=== PATIENT | male | born 1980 | race Caucasian/White ===

== ENCOUNTER 2017-01-08 08:03 | Emergency (ER) | payer OTHER, MEDICARE ==
[2017-01-08] MEDS ORDERED: HYDROCODONE/ACETAMINOPHEN 5-325 MG TABLET PO ONE (08:11)
--- NOTE | 2017-01-08 09:34 | ER Document Report ---
ED General - General Chief Complaint: Hand Pain Stated Complaint: RIGHT HAND PAIN Time Seen by Provider: 01/08/17 08:11 Mode of Arrival: Ambulatory Information source: Patient Notes: 36-year-old male presents after punching a wall yesterday. Patient notes pain is swollen he is unable to move it secondary to pain. 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 Patient denies any other injuries TRAVEL OUTSIDE OF THE [place] IN LAST 30 DAYS: No - HPI Onset: Yesterday Onset/Duration: Sudden Quality of pain: Achy Severity: Mild Pain Level: 1 Associated symptoms: Body/muscle aches Exacerbated by: Movement Relieved by: Denies Similar symptoms previously: Yes Recently seen / treated by doctor: Yes - Related Data Allergies/Adverse Reactions: No Known Allergies Allergy (Verified 01/08/17 08:06) Past Medical History - Social History Smoking Status: Former Smoker Cigarette use (# per day): No Chew tobacco use (# tins/day): No Smoking Education Provided: No Frequency of alcohol use: Social Drug Abuse: None Family History: Reviewed & Not Pertinent Patient has suicidal ideation: No Patient has homicidal ideation: No Renal/ Medical History: Denies: Hx Peritoneal Dialysis Psychiatric Medical History: Reports: Hx Depression Past Surgical History: Reports: Hx Genitourinary Surgery - vasectomy, Hx Oral Surgery - Immunizations Hx Diphtheria, Pertussis, Tetanus Vaccination: Yes Review of Systems - Review of Systems Notes: PHYSICAL EXAMINATION: GENERAL: Well-appearing, well-nourished and in no acute distress. HEAD: Atraumatic, normocephalic. EYES: Pupils equal round and reactive to light, extraocular movements intact, sclera anicteric, conjunctiva are normal. ENT: Nares patent, oropharynx clear without exudates. Moist mucous membranes. NECK: Normal range of motion, supple without lymphadenopathy LUNGS: Breath sounds clear to auscultation bilaterally and equal. No wheezes rales or rhonchi. HEART: Regular rate and rhythm without murmurs ABDOMEN: Soft, nontender, nondistended abdomen. No guarding, no rebound. No masses appreciated. Musculoskeletal: Right hand swollen middle range of motion significant pain no obvious deformity NEUROLOGICAL: Cranial nerves grossly intact. Normal speech, normal gait. Normal sensory, motor exams PSYCH: Normal mood, normal affect. SKIN: Warm, Dry, normal turgor, no rashes or lesions noted. Physical Exam - Vital signs Vitals: Temp Pulse Resp BP Pulse Ox 98.3 F 111 H 16 141/89 H 98 01/08/17 08:06 01/08/17 08:06 01/08/17 08:06 01/08/17 08:06 01/08/17 08:06 Course - Re-evaluation Re-evalutation: 01/08/17 09:31 X-ray noted no significant abnormality, old fractures noted well-healing. Patient will be placed in a splint for comfort is otherwise stable for discharge. Should return precautions and follow-up in 1 week as well a primary care physician provided After performing a Medical Screening Examination, I estimate there is LOW risk for INTRACRANIAL HEMORRHAGE, UNSTABLE SPINE FRACTURE, CENTRAL CORD SYNDROME, CAUDA EQUINA, THORACIC AORTIC DISSECTION, PNEUMOTHORAX, PERFORATED BOWEL, RUPTURED ABDOMINAL AORTIC ANEURYSM, ACUTE TENDON RUPTURE, COMPARTMENT SYNDROME, or OPEN FRACTURE, thus I consider the discharge disposition reasonable. Also, there is no evidence or peritonitis, sepsis, or toxicity. I have reevaluated this patient multiple times and no significant life threatening changes are noted. The patient and I have discussed the diagnosis and risks, and we agree with discharging home to follow-up with their primary doctor with the understanding that symptoms and presentations can change. We also discussed returning to the Emergency Department immediately if new or worsening symptoms occur. We have discussed the symptoms which are most concerning (e.g., bloody stool, fever, changing or worsening pain, vomiting) that necessitate immediate return. - Vital Signs Vital signs: Temp Pulse Resp BP Pulse Ox 98.3 F 111 H 16 141/89 H 98 01/08/17 08:06 01/08/17 08:06 01/08/17 08:06 01/08/17 08:06 01/08/17 08:06 - Diagnostic Test Radiology reviewed: Image reviewed, Reports reviewed - Soft tissue edema Procedures - Immobilization Right Hand Time completed: 09:40 Pre-Proc Neuro Vasc Exam: Normal Immobilizer type: Cock-up Performed by: LORRIE Post-Proc Neuro Vasc Exam: Normal Alignment checked and good: Yes Discharge - Discharge Clinical Impression: Right hand pain Contusion Qualifiers: Encounter type: initial encounter Contusion area: hand Laterality: right Qualified Code(s): S60.221A - Contusion of right hand, initial encounter Condition: Stable Disposition: HOME, SELF-CARE Additional Instructions: Contusion Your injury has resulted in a contusion -- a crushing of the deep tissues. No injury to important structures was detected during the physician's exam. Contusions vary in the amount of pain they cause, and in the length of time required for healing. Typically, the area will become bruised, and will remain painful to touch for two or three weeks. However, most patients are back to working and playing within a few days. After the initial period of rest and cold-packs, your symptoms (together with the doctor's recommendations) will determine how rapidly you can get back to full activity. Usually this means "do what feels okay, but don't do things that hurt." If re-examination was recommended, it's important to follow up as instructed. Call the doctor or return any time if pain increases, if swelling becomes severe, if you develop numbness or weakness in an injured extremity, or if any other alarming symptoms occur. Please follow-up with your primary care physician in one week if symptoms are not resolved return immediately to any other concerns Prescriptions: Oxycodone HCl/Acetaminophen [Percocet 5-325 mg Tablet] 1 - 2 tab PO Q4H PRN #15 tablet PRN Reason:
[2017-01-08 09:57] VITALS: BP 115/80
== END 2017-01-08 09:56 | disposition home or self-care (01) ==
LOC: ER 08:03
PROC: 2W3EX1Z Immobilization of Right Hand using Splint (ICD-10-PCS; principal; 2017-01-08)
DX: S60.221A Contusion of right hand, initial encounter (principal); M79.641 Pain in right hand; X58.XXXA Exposure to other specified factors, initial encounter
CPT/HCPCS: 99283; L3984

== ENCOUNTER 2017-02-22 20:34 | Emergency (ER) | payer OTHER, MEDICARE ==
[2017-02-22 22:15] LABS: ABSOLUTE EOSINOPHILS # (AUTO) 0.1 10^3/uL (0.0-0.6); ABSOLUTE LYMPHOCYTES (AUTO) 1.9 10^3/uL (0.5-4.7); ABSOLUTE MONOCYTES (AUTO) 0.7 10^3/uL (0.1-1.4); ABSOLUTE NEUT (AUTO) 3.9 10^3/uL (1.7-8.2); BASOPHILS % (AUTO) 0.6 % (0-2); HEMATOCRIT 39.9 % (37.9-51.0); HEMOGLOBIN 13.3 g/dL (13.5-17.0); LYMPHOCYTES % (AUTO) 28.1 % (13-45); MEAN CORPUSCULAR HEMOGLOBIN 28.4 pg (27.0-33.4); MEAN CORPUSCULAR HGB CONC 33.3 g/dL (32.0-36.0); MEAN CORPUSCULAR VOLUME 85 fl (80-97); MONOCYTES % (AUTO) 9.9 % (3-13); RED BLOOD COUNT 4.69 10^6/uL (4.35-5.55); RED CELL DISTRIBUTION WIDTH 12.9 % (11.5-14.0); SEGMENTED NEUTROPHILS % (AUTO) 59.4 % (42-78); WHITE BLOOD COUNT 6.7 10^3/uL (4.0-10.5)
[2017-02-22 22:20] LABS: APPEARANCE,URINE SLIGHTLY-CLOUDY; BILIRUBIN,URINE NEGATIVE (NEGATIVE); GLUCOSE, URINE NEGATIVE (NEGATIVE); KETONES,URINE TRACE mg/dL (NEGATIVE); LEUKOCYTE ESTERASE,URINE NEGATIVE (NEGATIVE); NITRITE,URINE NEGATIVE (NEGATIVE); PROTEIN,URINE NEGATIVE (NEGATIVE); URINE SPECIFIC GRAVITY 1.025; UROBILINOGEN,URINE NEGATIVE mg/dL (<2.0)
[2017-02-22 22:26] LABS: URINE BARBITURATES SCREEN NEGATIVE; URINE METHADONE SCREEN NEGATIVE; URINE OPIATES LOW NEGATIVE; URINE PHENCYCLIDINE SCREEN NEGATIVE
[2017-02-22 22:34] LABS: ALANINE AMINOTRANSFERASE 36 U/L (21-72); ALBUMIN 4.2 g/dL (3.5-5.0); ALCOHOL 15 mg/dL (NONE DETECTED); ALKALINE PHOSPHATASE 81 U/L (38-126); ANION GAP 14 (5-19); ASPARTATE AMINO TRANSFERASE 20 U/L (17-59); BILIRUBIN,DIRECT 0.3 mg/dL (0.0-0.4); BILIRUBIN,TOTAL 0.5 mg/dL (0.2-1.3); BLOOD UREA NITROGEN 14 mg/dL (7-20); CALCIUM 9.2 mg/dL (8.4-10.2); CARBON DIOXIDE 22 mmol/L (22-30); CHLORIDE 106 mmol/L (98-107); GLUCOSE 90 mg/dL (75-110); POTASSIUM 3.6 mmol/L (3.6-5.0); SODIUM 141.6 mmol/L (137-145); TOTAL PROTEIN 7.2 g/dL (6.3-8.2)
--- NOTE | 2017-02-23 02:57 | ER Document Report ---
ED General - General Chief Complaint: Suicidal Ideation Stated Complaint: PSYCH EVALUATION Time Seen by Provider: 02/22/17 21:21 Notes: Patient is a 36 year old male with past medical history of PTSD, traumatic brain injury, apparently off all medications at this time for the past 1-2 years who presents with passive suicidal ideation. Patient states that he got into an argument with his just prior to arrival, became increasingly angry and decided rather than punching a wall he wanted to he decided to drive to the emergency department. Patient states that he frequently feels suicidal towards himself, more so today but denies any specific plan or intention. Denies any homicidal ideation but notes that he is [place] and angry towards his and children and thinks about hurting them but has never done so. Admits to past suicide attempts with hospitalizations. He has not spoken to his primary doctor or psychiatrist today regarding his concerns. Does have access to firearms. TRAVEL OUTSIDE OF THE [place] IN LAST 30 DAYS: No - Related Data Allergies/Adverse Reactions: No Known Allergies Allergy (Verified 01/08/17 08:06) Past Medical History - General Information source: Patient - Social History Smoking Status: Current Every Day Smoker Chew tobacco use (# tins/day): No Frequency of alcohol use: Social Drug Abuse: None Lives with: Spouse/Significant other Family History: Reviewed & Not Pertinent Patient has suicidal ideation: No Patient has homicidal ideation: No Renal/ Medical History: Denies: Hx Peritoneal Dialysis Psychiatric Medical History: Reports: Hx Depression Past Surgical History: Reports: Hx Genitourinary Surgery - vasectomy, Hx Oral Surgery - Immunizations Hx Diphtheria, Pertussis, Tetanus Vaccination: Yes Review of Systems - Review of Systems Notes: Constitutional: Negative for fever. HENT: Negative for sore throat. Eyes: Negative for visual changes. Cardiovascular: Negative for chest pain. Respiratory: Negative for shortness of breath. Gastrointestinal: Negative for abdominal pain, vomiting or diarrhea. Genitourinary: Negative for dysuria. Musculoskeletal: Negative for back pain. Skin: Negative for rash. Neurological: Negative for headaches, weakness or numbness. 10 point ROS negative except as marked above and in HPI. Physical Exam - Vital signs Vitals: Temp Pulse Resp BP Pulse Ox 98.4 F 89 18 138/83 H 96 02/22/17 20:45 02/22/17 20:45 02/22/17 20:45 02/22/17 20:45 02/22/17 20:45 Interpretation: Normal Notes: PHYSICAL EXAMINATION: GENERAL: Well-appearing, well-nourished and in no acute distress. HEAD: Atraumatic, normocephalic. EYES: Pupils equal round and reactive to light, extraocular movements intact, sclera anicteric, conjunctiva are normal. ENT: nares patent, oropharynx clear without exudates. Moist mucous membranes. NECK: Normal range of motion, supple without lymphadenopathy LUNGS: Breath sounds clear to auscultation bilaterally and equal. No wheezes rales or rhonchi. HEART: Regular rate and rhythm without murmurs ABDOMEN: Soft, nontender, normoactive bowel sounds. No guarding, no rebound. No masses appreciated. EXTREMITIES: Normal range of motion, no pitting or edema. No cyanosis. NEUROLOGICAL: No focal neurological deficits. Moves all extremities spontaneously and on command. PSYCH: Somewhat agitated initially but calm and cooperative otherwise. Pressured speech. SKIN: Warm, Dry, normal turgor, no rashes or lesions noted. Course - Re-evaluation Re-evalutation: 02/23/17 02:53 Patient presents with suicidal ideation without specific plan or intent. Patient presents somewhat agitated stating that he could hurt anybody any time but mostly his focus on himself. States that certain from this way after an argument with his luis. He has been off all medications for PTSD for the past several years. Patient denies any acute medical complaints. Given the patient does not have any specific plans and states that he has no direct intention of completing suicide, will not place under IVC at this time. His medical screening laboratories have been obtained and are noted to be unremarkable. He is cleared for evaluation by psychiatry. - Vital Signs Vital signs: Temp Pulse Resp BP Pulse Ox 98.4 F 89 18 138/83 H 96 02/22/17 20:45 02/22/17 20:45 02/22/17 20:45 02/22/17 20:45 02/22/17 20:45 - Laboratory Result Diagrams: 02/22/17 21:50 02/22/17 21:50 Laboratory results interpreted by me: 02/22/17 02/22/17 02/22/17 21:50 21:50 21:50 Hgb 13.3 L Urine Ketones TRACE H Salicylates < 1.0 L Acetaminophen < 10 L - EKG Interpretation by Me Additional EKG results interpreted by me: 02/23/17 02:54 Normal sinus rhythm. Rate 89. No ST elevations or depressions. QTC is 448. Discharge - Discharge Clinical Impression: Suicidal ideation Condition: Stable Disposition: PSYCH HOSP/UNIT
--- NOTE | 2017-02-23 09:46 | ER Document Report ---
ED Psych Disorder / Suicide - General Mode of Arrival: Ambulatory Information source: Patient TRAVEL OUTSIDE OF THE [place] IN LAST 30 DAYS: No - HPI Patient complains to provider of: Homicidal ideation - Passive; no plan, means or intent, Suicidal ideation - Passive; no plan, means or intent Normal mood: Yes Associated symptoms: Normal affect, Normal mood <DICKSONMARGARITA - Last Filed: 02/23/17 09:37> <PRAVEENA THOMPSON - Last Filed: 02/23/17 10:05> - General Chief Complaint: Suicidal Ideation Stated Complaint: PSYCH EVALUATION Time Seen by Provider: 02/22/17 21:21 - HPI Notes: Patient is a 36 year old male with past medical history of PTSD, traumatic brain injury, apparently off all medications at this time for the past 1-2 years who presents with passive suicidal ideation. Patient states that he got into an argument with his just prior to arrival, became increasingly angry and decided rather than punching a wall he wanted to he decided to drive to the emergency department. Patient disclosed that [place] 2005 and by 2006 he needed inpatient. He continued disclosed that from 1999 [id number] he was taking medications and things are great. He continued disclosed that that [facility] and [facility] wanted to change his [facility]. He became upset because he did not want to change his medication since they were working. His medications ended up changing anyway; at this time patient reports he stopped taking his meds patient. He continued disclosed that he has anger problems and has passive thoughts of hurting himself or others. He continued disclosed that last night arguing with his in instead of her or himself he thought that he should come into the emergency department. Patient states he understands he probably to go back to [facility] for [facility] health Patient is alert and orientated to person place time and circumstance. Mood is euthymic with congruent affect. Patient endorses passive suicidal ideation and homicidal ideation with no plan means or intent. Patient denies auditory visual hallucinations; patient is not demonstrating any behavior congruent with responding to internal stimuli. No delusions are noted. Thought processes organized and linear. Conversational speech was within normal rate tone and prosody. Eye contact was well-maintained. Intellectual abilities appear to be within average range. Attention and concentration are good. Insight, judgment , impulse control are good. 309.81 (F 43.10) posttraumatic stress per history provided by patient Traumatic brain injury per history provided by patient Impression\plan: Patient is considered psychiatrically clear for discharge. Patient does not meet IVC criteria per [place] GS 120 2C. Patient suffers from passive suicidal homicidal ideation. Patient demonstrated positive insight and judgment by coming to the emergency instead of lashing out at himself or loved ones. [facility] both his [facility] health and medical treatment. Dr. Graves was consulted on the care and management of this patient; attending physician is in agreement with recommendations and disposition. (MARGARITA DICKSON) - Related Data Allergies/Adverse Reactions: No Known Allergies Allergy (Verified 01/08/17 08:06) Home Medications: Current Home Medications No Home Medications 02/23/17 [History] Past Medical History - General Information source: Patient - Social History Smoking Status: Current Every Day Smoker Chew tobacco use (# tins/day): No Frequency of alcohol use: Social Drug Abuse: None Lives with: Spouse/Significant other Family History: Reviewed & Not Pertinent Patient has suicidal ideation: No Patient has homicidal ideation: No Renal/ Medical History: Denies: Hx Peritoneal Dialysis Psychiatric Medical History: Reports: Hx Depression Past Surgical History: Reports: Hx Genitourinary Surgery - vasectomy, Hx Oral Surgery - Immunizations Hx Diphtheria, Pertussis, Tetanus Vaccination: Yes <MARGARITA DICKSON - Last Filed: 02/23/17 09:37> Course - Laboratory Result Diagrams: 02/22/17 21:50 02/22/17 21:50 <MARGARITA DICKSON - Last Filed: 02/23/17 09:37> - Laboratory Result Diagrams: 02/22/17 21:50 02/22/17 21:50 <PRAVEENA THOMPSON - Last Filed: 02/23/17 10:05> - Vital Signs Vital signs: Temp Pulse Resp BP Pulse Ox 97.5 F 70 18 132/75 H 96 02/23/17 06:47 02/23/17 06:47 02/23/17 06:47 02/23/17 06:47 02/23/17 06:47 - Laboratory Laboratory results interpreted by me: 02/22/17 02/22/17 02/22/17 21:50 21:50 21:50 Hgb 13.3 L Urine Ketones TRACE H Salicylates < 1.0 L Acetaminophen < 10 L Discharge <MARGARITA DICKSON - Last Filed: 02/23/17 09:37> <JAYPRAVEENA - Last Filed: 02/23/17 10:05> - Discharge Clinical Impression: Suicidal ideation, Posttraumatic stress disorder Clinical Impression: (Ruled Out): Traumatic brain injury Condition: Stable Disposition: HOME, SELF-CARE Additional Instructions: DEPRESSION: Your evaluation reveals that you have mental depression. While symptoms may be vague, they often include disturbance of sleep, fatigue, loss of appetite , and general loss of interest in life. While depression may be a side effect of drugs, or a reaction to a major change in your life, many cases have no known cause. If depression is acute, and related to a major loss in your life, you can expect it to clear completely with time. If you have been depressed a long time , are prone to repeated bouts of depression or low mood, or have been thinking of suicide, get help. Depression can be treated with anti-depressant medication and counselling. Long-term depression will often take a few weeks to clear, even with appropriate medication. Follow-up care is important. SUICIDAL IDEATION: Suicidal ideation is a common medical term for thoughts about suicide, which may be as detailed as a formulated plan, without the suicidal act itself. Although most people who undergo suicidal ideation do not commit suicide, some go on to make suicide attempts. The range of suicidal ideation varies greatly from fleeting to detailed planning, role playing, and unsuccessful attempts. While thoughts about suicide are common, most people do not carry out serious actions to commit suicide. Based upon your evaluation and discussion with you, we do not believe you are currently at risk to act upon your thoughts of suicide. You have agreed to return to the Emergency Department, at any time , if you feel inclined to act upon your suicidal thoughts. FOLLOW-UP CARE: Please follow-up with the local [facility] for your mental health needs on Saturday, 2016. If you experience worsening or a significant change in your symptoms, notify the physician immediately or return to the Emergency Department at any time for re-evaluation. Referrals: [facility] [Provider Group] - 02/25/17
[2017-02-23 10:29] VITALS: BP 151/86
--- NOTE | 2017-02-23 13:35 | ER Document Report ---
Doctor's Note Notes: 02/23/17 14:14 Rounds: Chart reviewed and patient interviewed. Vital signs are all essentially normal. Lab studies were essentially normal except for an alcohol level of 15. Patient appears medically stable for transfer or discharge. Mental health has assessed the patient feels he can be discharged for outpatient follow-up at the [facility]. Ceci Soares MD
--- NOTE | 2017-02-23 13:42 | EKG REPORT ---
SEVERITY:- OTHERWISE NORMAL ECG - SINUS OR ECTOPIC ATRIAL RHYTHM LOW VOLTAGE IN FRONTAL LEADS : Confirmed by: Jose Juan Unger 23-Feb-2017 13:40:35
== END 2017-02-23 10:29 | disposition home or self-care (01) ==
LOC: ER 20:34
DX: F43.10 Post-traumatic stress disorder, unspecified (principal); Z91.128 Patient's intentional underdosing of medication regimen for other reason; T50.906A Underdosing of unspecified drugs, medicaments and biological substances, initial encounter; Z91.14 Patient's other noncompliance with medication regimen; R45.850 Homicidal ideations; R45.851 Suicidal ideations; Z87.820 Personal history of traumatic brain injury; F17.200 Nicotine dependence, unspecified, uncomplicated; Z91.5 Personal history of self-harm
CPT/HCPCS: 36415; 80053; 80307; 81001; 85025; 93005; 93010; 99285

== ENCOUNTER → 2017-08-15 | Outpatient (CLI) | payer MEDICARE ==
--- NOTE | 2017-08-15 11:51 | RADIOLOGY REPORT (SQ) ---
EXAM DESCRIPTION: VENOUS UNILATERAL LOWER COMPLETED DATE/TIME: 08/15/2017 11:33 am REASON FOR STUDY: RLE EDEMA R60.9 EDEMA, UNSPECIFIED COMPARISON: None. TECHNIQUE: Dynamic and static fields scale and color images acquired of the right leg venous system. S elected spectral images acquired with additional compression and augmentation maneuvers. The contrala teral common femoral vein and saphenofemoral junction were also imaged. Images stored on PACS. LIMITATIONS: None. FINDINGS: RIGHT COMMON FEMORAL: Normal phasicity, compression and augmentation. No visualized echogenic material on g ray scale. No defects on color images. FEMORAL: Normal compression and augmentation. No visualized echogenic material on fields scale. No defe cts on color images. POPLITEAL: Normal compression, augmentation. No visualized echogenic material on fields scale. No defec ts on color images. CALF VESSELS: Normal compression, augmentation. No visualized echogenic material on fields scale. No de fects on color images. GSV and SSV: Normal compression, augmentation. No visualized echogenic material on fields scale. No def ects on color images. ANY DEEP VENOUS INSUFFICIENCY: Not evaluated. ANY EVIDENCE OF POPLITEAL CYST: No. OTHER: No other significant finding. LEFT COMMON FEMORAL VEIN AND SAPHENOFEMORAL JUNCTION: Normal phasicity, compression and augmentation. No visualized echogenic material on fields scale. No de fects on color images. IMPRESSION: NO EVIDENCE OF DVT OR SVT IN THE RIGHT LEG. TECHNICAL DOCUMENTATION: JOB ID: [id number] [employer]- All Rights Reserved
--- NOTE | 2017-08-15 13:03 | RADIOLOGY REPORT (SQ) ---
EXAM DESCRIPTION: FOOT RIGHT COMPLETE COMPLETED DATE/TIME: 08/15/2017 11:31 am REASON FOR STUDY: M79.671 ARCH PAIN IN RIGHT FOOT R60.9 EDEMA, UNSPECIFIED COMPARISON: None. NUMBER OF VIEWS: Three views. TECHNIQUE: AP, lateral and oblique radiographic images acquired of the right foot. LIMITATIONS: None. FINDINGS: MINERALIZATION: Normal. BONES: No acute fracture or dislocation. No tarsal coalition JOINTS: No effusions. SOFT TISSUES: Dorsal forefoot soft tissue swelling. No foreign body. OTHER: No other significant finding. IMPRESSION: Forefoot soft tissue swelling. No acute fracture or malalignment. No plain film eviden ce of tarsal coalition TECHNICAL DOCUMENTATION: JOB ID: [id number]- All Rights Reserved
== END ==
LOC: SP 10:30
PROVIDERS: ATTEND Nurse Practitioner Family
DX: M79.671 Pain in right foot (principal); R60.9 Edema, unspecified
CPT/HCPCS: 93971

== ENCOUNTER 2017-12-14 14:50 | Emergency (ER) | payer MEDICARE ==
[2017-12-14] MEDS ORDERED: DIPH/PERTUSS(ACELL)/TETANUS VAC/PF 0.5 ML SYR (>=10YO) IM ONE (15:17)
--- NOTE | 2017-12-14 15:20 | ER Document Report ---
ED Hand/Wrist Injury - General Mode of Arrival: Ambulatory Information source: Patient TRAVEL OUTSIDE OF THE [place] IN LAST 30 DAYS: No <NANETTE ROWELL - Last Filed: 12/14/17 17:10> - HPI Severity: Moderate Context: Blow <KEREN BALDERAS - Last Filed: 12/14/17 17:53> - General Chief Complaint: Hand Injury Stated Complaint: LEFT HAND INJURY Time Seen by Provider: 12/14/17 15:04 Notes: 37 y.o male presents to the ED with injury to his LT hand. He reports that he was helping a neighbor plant a tree and missed the stake and hit his LT hand with a hammer about an hour ago. Unknown if tetanus is up to date. (NANETTE ROWELL) - Related Data Allergies/Adverse Reactions: acetaminophen [From Vicodin] Adverse Reaction (Verified 12/14/17 14:56) hydrocodone [From Vicodin] Adverse Reaction (Verified 12/14/17 14:56) Past Medical History - General Information source: Patient - Social History Smoking Status: Former Smoker Chew tobacco use (# tins/day): No Frequency of alcohol use: Social Drug Abuse: None Family History: Reviewed & Not Pertinent Patient has suicidal ideation: No Patient has homicidal ideation: No Renal/ Medical History: Denies: Hx Peritoneal Dialysis Psychiatric Medical History: Reports: Hx Depression Past Surgical History: Reports: Hx Genitourinary Surgery - vasectomy, Hx Oral Surgery - Immunizations Hx Diphtheria, Pertussis, Tetanus Vaccination: Yes <NANETTE ROWELL - Last Filed: 12/14/17 17:10> Review of Systems - Review of Systems Constitutional: No symptoms reported EENT: No symptoms reported Cardiovascular: No symptoms reported Respiratory: No symptoms reported Gastrointestinal: No symptoms reported Genitourinary: No symptoms reported Male Genitourinary: No symptoms reported Musculoskeletal: Other - LT hand injury Skin: Other - abrasion, edema Hematologic/Lymphatic: No symptoms reported Neurological/Psychological: No symptoms reported -: Yes All other systems reviewed and negative <NANETTE ROWELL - Last Filed: 12/14/17 17:10> Physical Exam <NANETTE ROWELL - Last Filed: 12/14/17 17:10> <KEREN BALDERAS - Last Filed: 12/14/17 17:53> - Vital signs Vitals: Temp Pulse Resp BP Pulse Ox 98.0 F 104 H 20 142/86 H 96 12/14/17 15:01 12/14/17 15:01 12/14/17 15:01 12/14/17 15:01 12/14/17 15:01 - Notes Notes: Physical Exam: General: Alert, appears well. HEENT: Normocephalic. Atraumatic. PERRLA. Extraocular movements intact. Neck: Supple. Respiratory: No respiratory distress. Abdominal: Normal Inspection. No distension. Extremities: LT hand with significant swelling to the web space between the 1st and 2nd digits with superficial abrasion to the dorsal aspect overtop the swelling. Tender to palpation across the 2nd metacarpal. Neurological: Normal cognition. AAOx4. Normal speech. Psychological: Normal affect. Normal Mood. Skin: Superficial abrasion to LT hand. (NANETTE ROWELL) Course <NANETTE ROWELL - Last Filed: 12/14/17 17:10> <KEREN BALDERAS - Last Filed: 12/14/17 17:53> - Re-evaluation Re-evalutation: 12/14/17 16:21 Consistent with hematoma and contusion to the soft tissue, x-ray does not show any signs of fracture or subcutaneous air. Discharged home with instructions on ice, anti-inflammatories and elevation. (KEREN BALDERAS) - Vital Signs Vital signs: Temp Pulse Resp BP Pulse Ox 97.7 F 87 16 125/77 95 12/14/17 16:38 12/14/17 16:38 12/14/17 16:38 12/14/17 16:38 12/14/17 16:38 Discharge <NANETTE ROWELL - Last Filed: 12/14/17 17:10> <KEREN BALDERAS - Last Filed: 12/14/17 17:53> - Discharge Clinical Impression: Contusion of left hand Qualifiers: Encounter type: initial encounter Qualified Code(s): S60.222A - Contusion of left hand, initial encounter Abrasion of left hand Qualifiers: Encounter type: initial encounter Qualified Code(s): S60.512A - Abrasion of left hand, initial encounter Condition: Stable Disposition: HOME, SELF-CARE Additional Instructions: Your x-ray did not show any signs of fracture. You do not need to wear splint. Keep the hand elevated, take ibuprofen 800 mg every 8 hours as needed for pain. You may use ice on for 15 minutes off for the rest of the hour. Please return to the emergency department for any new or concerning symptoms. Referrals: LIAM CISNEROS, [place] [facility] [Primary Care Provider] - Follow up in 1 week Scribe Attestation: 12/14/17 17:53 I personally performed the services described in the documentation, reviewed and edited the documentation which was dictated to the scribe in my presence, and it accurately records my words and actions. (KEREN BALDERAS) Scribe Documentation - Scribe Written by Mickie:: Mickie Modi 12/14/2017 1519 acting as scribe for :: Leighann <NANETTE ROWELL - Last Filed: 12/14/17 17:10>
--- NOTE | 2017-12-14 15:48 | RADIOLOGY REPORT (SQ) ---
EXAM DESCRIPTION: HAND LEFT 3 VIEWS COMPLETED DATE/TIME: 12/14/2017 3:33 pm REASON FOR STUDY: hit left hand with hammer, swelling 2nd metacarpal COMPARISON: None. EXAM PARAMETERS: NUMBER OF VIEWS: Three views. TECHNIQUE: AP, lateral and oblique radiographic images acquired of the left hand. LIMITATIONS: None. FINDINGS: MINERALIZATION: Normal. BONES: No acute fracture or dislocation. No worrisome bone lesions. JOINTS: No effusions. SOFT TISSUES: No soft tissue swelling. No foreign body. OTHER: No other significant finding. IMPRESSION: NEGATIVE STUDY OF THE LEFT HAND. NO RADIOGRAPHIC EVIDENCE OF ACUTE INJURY. TECHNICAL DOCUMENTATION: JOB ID: [id number]- All Rights Reserved Reading location - IP/workstation name: [email or web address]
[2017-12-14 16:39] VITALS: BP 125/77
== END 2017-12-14 16:39 | disposition home or self-care (01) ==
LOC: ER 14:50
DX: S60.222A Contusion of left hand, initial encounter (principal); S60.512A Abrasion of left hand, initial encounter; M79.642 Pain in left hand; M79.89 Other specified soft tissue disorders; W22.8XXA Striking against or struck by other objects, initial encounter; Z87.891 Personal history of nicotine dependence
CPT/HCPCS: 90471; 90715; 99283